=== PATIENT | male | born 1980 ===

== ENCOUNTER 2017-06-22 08:36 | Emergency (ER) | payer OTHER ==
[2017-06-22 09:10] VITALS: BMI 36.0
[2017-06-22] MEDS ORDERED: Sodium Chloride 0.9% 1,000 ML IV STA (09:39)
[2017-06-22] MEDS ORDERED: Sodium Chloride 0.9% 1,000 ML ONE (09:40)
--- NOTE | 2017-06-22 09:52 | C.PDOC ---
History Of Present Illness 37 y/o male, with no known PMHx, presents to ED with c/o blurry vision, lightheadedness, frequent urination, thirst, x over 1 year. Patient states he has had high finger sticks at home, and has never followed up with primary care , and never diagnosed with diabetes. Denies active fever, chest pain, shortness of breath, or dysuria. Time Seen by Provider: 06/22/17 09:22 Chief Complaint (Nursing): High Blood Sugar History Per: Patient History/Exam Limitations: no limitations Onset/Duration Of Symptoms: Days Current Symptoms Are (Timing): Still Present Current Diabetic Medications: None Associated Infectious Symptoms: denies: Cough, Dysuria Recent travel outside of the [place]: No Past Medical History Reviewed: Historical Data, Nursing Documentation, Vital Signs Vital Signs: Last Vital Signs Temp 99.1 F 06/22/17 09:10 Pulse 79 06/22/17 09:10 Resp 18 06/22/17 09:10 BP 122/80 06/22/17 09:10 Pulse Ox 97 06/22/17 11:34 - Medical History PMH: Hypercholesterolemia Family History: States: Unknown Family Hx - Social History Hx Alcohol Use: No Hx Substance Use: No - Immunization History Hx Tetanus Toxoid Vaccination: No Hx Influenza Vaccination: No Hx Pneumococcal Vaccination: No Review Of Systems Except As Marked, All Systems Reviewed And Found Negative. Constitutional: Negative for: Fever, Chills Eyes: Positive for: Other (blurry vision) ENT: Positive for: Other (polydipsia). Negative for: Throat Pain Cardiovascular: Positive for: Light Headedness. Negative for: Chest Pain, Palpitations Respiratory: Negative for: Cough, Shortness of Breath Gastrointestinal: Negative for: Nausea, Vomiting Genitourinary: Positive for: Frequency Skin: Negative for: Rash Physical Exam - Physical Exam Additional Physical Exam Comments: Constitutional: No acute distress. Head: Normocephalic. Atraumatic. Eyes: PERRL. ENT: Moist mucous membranes. Neck: Supple. Cardiovascular: Regular rate. Radial pulse 2+ bilaterally. Chest: No tenderness. Respiratory: Clear to auscultation bilaterally. GI: Soft. Nontender. Nondistended. Back: No CVA tenderness. Musculoskeletal: No tenderness or swelling of extremities. Skin: No rash. Neurologic: Alert, no focal deficit. ED Course And Treatment - Laboratory Results Result Diagrams: 06/22/17 10:02 06/22/17 10:02 O2 Sat by Pulse Oximetry: 97 (RA) Pulse Ox Interpretation: Normal Medical Decision Making Medical Decision Making: Plan: * EKG * CxR * Labs * Testicular Ultrasound * IV fluids * Reassess Progress: EKG IMPRESSION: NSR 70 bpm, No ST/T wave changes CxR IMPRESSION: No active disease. US Testicular: Bilateral epididymal cysts. Patient in no distress, vitals normal, labs unremarkable other than hyperglycemia, no DKA. Will discharge on Metformin, Lisinopril, Simvastatin, f/ u clinic, return to ED for worsening pain, dyspnea, vomiting, confusion, or any other problem. Disposition - Disposition Referrals: [facility] at [facility] [Outside] Disposition: HOME/ ROUTINE Disposition Time: 11:46 Condition: STABLE Prescriptions: Lisinopril [Zestril] 2.5 mg PO DAILY #14 tablet metFORMIN [glucOPHAGE] 500 mg PO BID #28 tab Simvastatin 5 mg PO QPM #14 tablet Instructions: Diabetes Mellitus Type 2 in Adults (ED) Forms: [employer] (Swedish) - Clinical Impression Clinical Impression: Diabetes mellitus - Scribe Statement The provider has reviewed the documentation as recorded by the Scribe SM All medical record entries made by the Scribe were at my direction and personally dictated by me. I have reviewed the chart and agree that the record accurately reflects my personal performance of the history, physical exam, medical decision making, and the department course for this patient. I have also personally directed, reviewed, and agree with the discharge instructions and disposition.
[2017-06-22 09:53] LABS: RBC URINE < 1 /hpf (0-3); URINE BILIRUBIN NEGATIVE (NEGATIVE); URINE BLOOD NEGATIVE (NEGATIVE); URINE COLOR Yellow (YELLOW); URINE GLUCOSE (UA) 3+ mg/dL (Normal); URINE KETONE NEGATIVE (NEGATIVE); URINE LEUKOCYTE ESTERASE NEG Leu/uL (Negative); URINE PROTEIN 1+ mg/dL (NEGATIVE); URINE UROBILINOGEN NORMAL mg/dL (0.2-1.0); WBC URINE 1 /hpf (0-5)
--- NOTE | 2017-06-22 09:53 | C.PDOC ---
Time Seen by Provider: 06/22/17 09:22 Chief Complaint (Nursing): High Blood Sugar Past Medical History Vital Signs: Last Vital Signs Temp 99.1 F 06/22/17 09:10 Pulse 79 06/22/17 09:10 Resp 18 06/22/17 09:10 BP 122/80 06/22/17 09:10 Pulse Ox 97 06/22/17 09:10 - Medical History PMH: Hypercholesterolemia - Social History Hx Alcohol Use: No Hx Substance Use: No - Immunization History Hx Tetanus Toxoid Vaccination: No Hx Influenza Vaccination: No Hx Pneumococcal Vaccination: No ED Course And Treatment O2 Sat by Pulse Oximetry: 97 Disposition - Disposition Forms: [employer] (Vietnamese)
--- NOTE | 2017-06-22 10:00 | RAD ---
HISTORY: hyperglycemia COMPARISON: Abort TECHNIQUE: Chest PA and lateral FINDINGS: LUNGS: No active pulmonary disease. PLEURA: No significant pleural effusion identified. No pneumothorax apparent. CARDIOVASCULAR: Normal. OSSEOUS STRUCTURES: No significant abnormalities. VISUALIZED UPPER ABDOMEN: Normal. OTHER FINDINGS: None. IMPRESSION: No active disease.
[2017-06-22 10:13] LABS: BASO # 0.1 K/uL (0.0-0.2); BASO % 0.7 % (0.0-2.0); EOS # 0.3 K/uL (0.0-0.7); EOS % 4.5 % (0.0-4.0); HEMATOCRIT 46.7 % (35.0-51.0); LYMPH # 2.6 K/uL (1.0-4.3); LYMPH % 34.8 % (20.0-40.0); MEAN CELL VOLUME 85.9 fL (80.0-94.0); MEAN CORPUSCULAR HEMOGLOBIN 29.3 pg (27.0-31.0); MEAN CORPUSCULAR HGB CONC 34.1 g/dL (33.0-37.0); MEAN PLATELET VOLUME 9.9 fL (7.2-11.7); MONO # 0.5 K/uL (0.0-0.8); MONO % 6.5 % (0.0-10.0); NRBC % 0.1 % (0.0-2.0); RED CELL DISTRIBUTION WIDTH 12.5 % (11.5-14.5); WHITE BLOOD COUNT 7.4 K/uL (4.8-10.8)
[2017-06-22 10:28] LABS: CHLORIDE 99 mmol/L (98-107); SODIUM 140 mmol/L (132-148)
[2017-06-22 10:29] LABS: POTASSIUM 3.8 mmol/L (3.6-5.2)
[2017-06-22 10:30] LABS: GFR AFRICAN-AMERICAN > 60
[2017-06-22 10:31] LABS: ALB/GLOB RATIO 1.1 (1.0-2.1); ALKALINE PHOSPHATASE 84 U/L (38-126); ALT/SGPT 70 U/L (21-72); AST/SGOT 39 U/L (17-59); BILIRUBIN,TOTAL 1.1 mg/dL (0.2-1.3); BLOOD UREA NITROGEN 14 mg/dL (9-20); CARBON DIOXIDE 27 mmol/L (22-30); GLUCOSE,RANDOM 252 mg/dL (75-110); TOTAL PROTEIN 7.6 g/dL (6.3-8.3)
[2017-06-22 10:32] LABS: CALCIUM 9.3 mg/dl (8.6-10.4)
--- NOTE | 2017-06-22 11:47 | US ---
HISTORY: testicular pain TECHNIQUE: Realtime sonography through the scrotum with color and doppler flow. COMPARISON: None Available. FINDINGS: RIGHT TESTICLE: Measures 4.3 x 2.1 x 3.0 cm. Homogeneous echotexture. Blood flow is demonstrated. RIGHT EPIDIDYMIS: Measures approximately 1.3 x 1.1 x 1.9 cm. Epididymal cyst measures approximately 0.8 x 0.7 x 1.0 cm. LEFT TESTICLE: Measures 4.2 x 2.7 x 3.1 cm. Homogeneous echotexture. Blood flow is demonstrated the. LEFT EPIDIDYMIS: Measures approximately 1.7 x 0.8 x 1.9 cm. Epididymal cysts measure approximately 0.7 x 0.4 x 0.7 cm and 0.3 x 0.2 x 0.2 cm. HYDROCELE: None. VARICOCELE: None. OTHER FINDINGS: None. IMPRESSION: Bilateral epididymal cysts.
[2017-06-22 12:59] VITALS: BP 132/87; PULSE 72; RESP 20; TEMP 98.8; O2SAT 98
--- NOTE | 2017-06-23 12:32 | CARD ---
APPROVED REPORT EKG Measurement Heart [id number] <Conclusion> Normal sinus rhythm Normal ECG
== END 2017-06-22 13:01 | disposition home or self-care (01) ==
LOC: C.ER 08:36
DX: E11.65 Type 2 diabetes mellitus with hyperglycemia (principal)
CPT/HCPCS: 71020; 76870; 80053; 81001; 82009; 82550; 82553; 82948; 83690; 84484; 85025; 87086; 93005; 96360; 99285; J7040

== ENCOUNTER 2017-07-03 13:45 | Emergency (ER) | payer OTHER, SELFPAY ==
[2017-07-03 13:45] VITALS: BMI 36.0
[2017-07-03 13:51] VITALS: O2SAT 97
[2017-07-03] MEDS ORDERED: Tetracaine 0.5% Ophth 2 ML BOTTLE OU ONE (14:26)
[2017-07-03] MEDS ORDERED: Tetracaine 0.5% Ophth (OR ONLY) ONE (14:28)
--- NOTE | 2017-07-03 14:31 | C.PDOC ---
History Of Present Illness 37 yo male w/PMHx of NIDDM, come in for evaluation of B/L eyes pain for past 6 months associated with intermittent dizziness. Pt sts, was seen by linen room worker few days ago " who measured my pressure and was told I have glaucoma and recommend I go to ED for evaluation immediately". Pt sts, wears glasses " needs to be changed as per my linen room worker. I am in process of changing my glasses now ". Pt admits, complaint with DM medication. Otherwise, pt denies fever, chills, severe headache, blurry vision, double vision. floaters, blindness, denies severe eye pain, dizziness, N/V, neck pain, CP, SOB, abd. pain, denies any other active complaints. Ambulate to ED for evaluation, not in any apparent distress. Time Seen by Provider: 07/03/17 13:55 Chief Complaint (Nursing): Eye Problem History Per: Patient History/Exam Limitations: no limitations Onset/Duration Of Symptoms: Days (6 months) Current Symptoms Are (Timing): Still Present Past Medical History Reviewed: Historical Data, Nursing Documentation, Vital Signs Vital Signs: Last Vital Signs Temp 98.2 F 07/03/17 14:43 Pulse 75 07/03/17 14:43 Resp 16 07/03/17 14:43 BP 114/74 07/03/17 14:43 Pulse Ox 97 07/03/17 14:49 - Medical History PMH: Hypercholesterolemia Family History: States: No Known Family Hx - Social History Hx Alcohol Use: No Hx Substance Use: No - Immunization History Hx Tetanus Toxoid Vaccination: No Hx Influenza Vaccination: No Hx Pneumococcal Vaccination: No Review Of Systems Except As Marked, All Systems Reviewed And Found Negative. Constitutional: Negative for: Fever, Chills Eyes: Positive for: Pain (Bilateral eye pain). Negative for: Vision Change Cardiovascular: Negative for: Chest Pain Respiratory: Negative for: Shortness of Breath Gastrointestinal: Negative for: Nausea, Vomiting, Abdominal Pain Musculoskeletal: Negative for: Neck Pain Neurological: Positive for: Dizziness (Intermittent dizziness. None right now.) . Negative for: Headache Physical Exam - Physical Exam Appears: Well, Non-toxic, No Acute Distress Skin: Normal Color, Warm, Dry, No Rash Head: Normacephalic Eye(s): bilateral: PERRL, EOMI (no pain or limitation on extraocular movement B/ L.), Other (no conjunctival injection or discharge. No periorbital edema or erythema.) Ear(s): Bilateral: Normal Nose: No Flaring, No Discharge Oral Mucosa: Moist, No Drooling Tongue: Normal Appearing Lips: Normal Appearing Throat: No Erythema, No Exudate, No Drooling Neck: Supple Cardiovascular: Rhythm Regular, No Friction Rub, No Murmur, No JVD, Other ((-) carotid bruits) Respiratory: No Decreased Breath Sounds, No Accessory Muscle Use, No Rales, No Rhonchi, No Stridor, No Wheezing Gastrointestinal/Abdominal: Soft, No Tenderness, No Guarding Extremity: No Pedal Edema, No Deformity Neurological/Psych: Oriented x3, Normal Speech, Normal Motor, Normal Sensation, Normal Reflexes ED Course And Treatment O2 Sat by Pulse Oximetry: 97 (RA ) Pulse Ox Interpretation: Normal Progress Note: TONOPEN EYE PRESSURE MEASUREMENT: R EYE-21, L EYE-19. FSBS 115. On re-eval, pt is afebrile, hemodynamiclay stable. Non-toxic. B/L eyes; no pain or limitation on extraocula movemnet. case discussed with ED attending and no further testing ecommend. Dischagre with outpt f/u recommend at this time. Disposition Counseled Patient/Family Regarding: Studies Performed, Diagnosis, Need For Followup - Disposition Referrals: Osiel Crow MD [Staff Provider] - Disposition: HOME/ ROUTINE Disposition Time: 14:34 Condition: STABLE Additional Instructions: Follow up with Ophtalmology in 1-2 days for re-evaluation and further treatment as need Return to ED if any worsening or new changes. Instructions: Eye Pain (ED) Forms: [employer] (Equatorial Guinean) Print Language: KOREAN - Clinical Impression Clinical Impression: Eye pain - PA / TOE STRIPPER / Resident Statement MD/DO has reviewed & agrees with the documentation as recorded. - Scribe Statement The provider has reviewed the documentation as recorded by the Scribe Debbie Schmitt All medical record entries made by the Scribe were at my direction and personally dictated by me. I have reviewed the chart and agree that the record accurately reflects my personal performance of the history, physical exam, medical decision making, and the department course for this patient. I have also personally directed, reviewed, and agree with the discharge instructions and disposition.
[2017-07-03 14:44] VITALS: BP 114/74; PULSE 75; RESP 16; TEMP 98.2
== END 2017-07-03 14:49 | disposition home or self-care (01) ==
LOC: C.ER 13:45
DX: H57.13 Ocular pain, bilateral (principal)

== ENCOUNTER 2017-08-28 16:47 | Emergency (ER) | payer OTHER ==
[2017-08-28 16:47] VITALS: BMI 36.0
--- NOTE | 2017-08-28 21:10 | C.PDOC ---
History Of Present Illness 37 yr old male with PMHx of diabetes and elevated uric acid, is on Metformin, presents to the ER with complaints of pain all over with mild nausea. Patient states he took Advil 400 with mild relief. Reports of decrease appetite, states he checked his sugar and it had gone down to 80, reports of palpitations. States his eyes feels heavy, feels hot, and has ringing in ears. Patient denies chest pain, SOB, vomiting, abdominal pain, weakness or numbness. Time Seen by Provider: 08/28/17 19:45 Chief Complaint (Nursing): Headache History Per: Patient History/Exam Limitations: no limitations Onset/Duration Of Symptoms: Days Current Symptoms Are (Timing): Still Present Past Medical History Reviewed: Historical Data, Nursing Documentation, Vital Signs Vital Signs: Last Vital Signs Temp 102.0 F H 08/28/17 20:02 Pulse 127 H 08/28/17 17:05 Resp 20 08/28/17 17:05 BP 127/85 08/28/17 17:05 Pulse Ox 99 08/28/17 21:16 - Medical History PMH: Hypercholesterolemia Family History: States: No Known Family Hx - Social History Hx Alcohol Use: No Hx Substance Use: No - Immunization History Hx Tetanus Toxoid Vaccination: No Hx Influenza Vaccination: No Hx Pneumococcal Vaccination: No Review Of Systems Except As Marked, All Systems Reviewed And Found Negative. Constitutional: Positive for: Other ((+) pain all over) Eyes: Positive for: Other ((+) eyes feel heavy) ENT: Positive for: Other ((+) Ringing in ears) Gastrointestinal: Positive for: Nausea. Negative for: Vomiting Physical Exam - Physical Exam Appears: Non-toxic, No Acute Distress Skin: Warm, Dry, No Rash Head: Atraumatic, Normacephalic Oral Mucosa: Moist Throat: Erythema (Mild ) Neck: Normal, Normal ROM, Supple Chest: Symmetrical, No Tenderness Cardiovascular: Rhythm Regular, No Murmur Respiratory: Normal Breath Sounds, No Rales, No Rhonchi, No Stridor, No Wheezing Gastrointestinal/Abdominal: Normal Exam, Soft, No Tenderness, No Guarding, No Rebound Extremity: Normal ROM, No Swelling Neurological/Psych: Oriented x3, Normal Speech, Normal Motor ED Course And Treatment O2 Sat by Pulse Oximetry: 99 (RA ) Pulse Ox Interpretation: Normal Medical Decision Making Medical Decision Making: PLAN: * CBC * CMP * Influenza * Motrin PO * Tylenol PO * Pepcid IVP * Zofran IVP * Sodium Chloride IV * * Patient feeling better, requesting to go home. Disposition Counseled Patient/Family Regarding: Diagnosis, Need For Followup, Rx Given - Disposition Disposition: HOME/ ROUTINE Disposition Time: 21:29 Condition: STABLE Prescriptions: Ibuprofen [Motrin] 600 mg PO TID #15 tab Instructions: Fever in Adults (ED), Diabetic Hypoglycemia (ED) Forms: Gen Discharge Inst Belizean, [employer] (Belizean) - Clinical Impression Clinical Impression: Influenza-like illness - Scribe Statement The provider has reviewed the documentation as recorded by the Andreasibalondra Schmitt Provider Attestation: All medical record entries made by the Andreasibalondra were at my direction and personally dictated by me. I have reviewed the chart and agree that the record accurately reflects my personal performance of the history, physical exam, medical decision making, and the department course for this patient. I have also personally directed, reviewed, and agree with the discharge instructions and disposition.
[2017-08-28] MEDS ORDERED: Sodium Chloride 0.9% 1,000 ML IV ONE (21:13)
[2017-08-28 21:52] VITALS: BP 109/69; PULSE 96; RESP 20; TEMP 98.3; O2SAT 96
== END 2017-08-28 21:52 | disposition home or self-care (01) ==
LOC: C.ER 16:47
DX: J11.1 Influenza due to unidentified influenza virus with other respiratory manifestations (principal)

== ENCOUNTER 2017-08-29 16:36 | Emergency (ER) | payer OTHER ==
[2017-08-29 16:41] VITALS: BMI 37.5
[2017-08-29 16:42] VITALS: RESP 18; TEMP 98.1; O2SAT 98
[2017-08-29] MEDS ORDERED: Simethicone 80 mg Chewtab PO STA (17:05)
[2017-08-29] MEDS ORDERED: Sodium Chloride 0.9% 1,000 ML IV STA (17:05)
--- NOTE | 2017-08-29 17:09 | C.PDOC ---
History Of Present Illness 37 year old male presents to the ED with complaints of abdominal pain for two days with associated sensation of being "gassy" and sweats. Patient reports he was seen in the ED yesterday for nausea, fever, and abdominal pain. Fever and nausea have resolved but abdominal pain has worsened. He denies vomiting, diarrhea, chest pain, shortness of breath, or current fever. Time Seen by Provider: 08/29/17 16:54 Chief Complaint (Nursing): Abdominal Pain History Per: Patient History/Exam Limitations: no limitations Onset/Duration Of Symptoms: Days (2 days ), Worse Since (last night ) Current Symptoms Are (Timing): Still Present Location Of Pain/Discomfort: Diffuse Radiation Of Pain To:: None Quality Of Discomfort: "Pain" Associated Symptoms: denies: Fever, Chills, Nausea, Vomiting, Diarrhea Exacerbating Factors: None Alleviating Factors: None Recent travel outside of the [place]: No Additional History Per: Prior Records Past Medical History Reviewed: Historical Data, Nursing Documentation, Vital Signs Vital Signs: Last Vital Signs Temp 98.1 F 08/29/17 16:41 Pulse 104 H 08/29/17 16:41 Resp 18 08/29/17 16:41 BP 113/79 08/29/17 16:41 Pulse Ox 98 08/29/17 17:21 - Medical History PMH: Hypercholesterolemia Family History: States: Unknown Family Hx - Social History Hx Alcohol Use: No Hx Substance Use: No - Immunization History Hx Tetanus Toxoid Vaccination: No Hx Influenza Vaccination: No Hx Pneumococcal Vaccination: No Review Of Systems Constitutional: Positive for: Sweats. Negative for: Fever, Chills Cardiovascular: Negative for: Chest Pain Respiratory: Negative for: Cough, Shortness of Breath Gastrointestinal: Positive for: Abdominal Pain. Negative for: Nausea, Vomiting , Diarrhea Physical Exam - Physical Exam Additional Physical Exam Comments: Constitutional: No acute distress. Head: Normocephalic. Atraumatic. Eyes: PERRL. ENT: Moist mucous membranes. Neck: Supple. Cardiovascular: Regular rate. Radial pulse 2+ bilaterally. Chest: No tenderness. Respiratory: Clear to auscultation bilaterally. GI: Soft. Nontender. Nondistended. Back: No CVA tenderness. Musculoskeletal: No tenderness or swelling of extremities. Skin: No rash. Clammy. Neurologic: Alert, no focal deficit. ED Course And Treatment - Laboratory Results Result Diagrams: 10/31/17 17:26 08/29/17 17:26 O2 Sat by Pulse Oximetry: 98 (RA) Progress Note: Blood work, UA, and Influenza A B stat were ordered. Patient was given Toradol, Zofran, Mylicon, and IV fluids. Medical Decision Making Medical Decision Making: Chart from yesterday indicates labs were done but no results in system and patient states no lab work was done. Will perform today, treat patient with IVF , Zofran, Simethicone, and toradol. No abdominal tenderness on exam, soft, will re-evaluate patient, no indication for imaging at this time. Patient feels much better and appears better at reassessment after treatment. Will discharge home, supportive care, f/u primary care, instructed to return to ED for worsening pain, fever, intractible vomiting, changing abdominal pain, or any other problem. Disposition - Disposition Referrals: [facility] at [facility] [Outside] Disposition: HOME/ ROUTINE Disposition Time: 18:07 Condition: STABLE Prescriptions: Famotidine/Ca Carb/Mag Hydrox [Pepcid Complete Tablet Chew] 1 each PO BID #28 tab.chew Ibuprofen [Motrin] 600 mg PO Q6 #25 tab Ondansetron ODT [Zofran ODT] 4 mg PO Q8 #12 odt Simethicone [Mi-Acid] 80 mg PO BID #12 ctb Instructions: Gastroenteritis (ED) Forms: [employer] (Irish), Work Excuse - Clinical Impression Clinical Impression: Abdominal pain, Vomiting - Scribe Statement The provider has reviewed the documentation as recorded by the Scribalondra Forbes All medical record entries made by the Scribe were at my direction and personally dictated by me. I have reviewed the chart and agree that the record accurately reflects my personal performance of the history, physical exam, medical decision making, and the department course for this patient. I have also personally directed, reviewed, and agree with the discharge instructions and disposition.
[2017-08-29 17:30] LABS: BASO # 0.1 K/uL (0.0-0.2); BASO % 0.6 % (0.0-2.0); EOS % 0.2 % (0.0-4.0); HEMATOCRIT 43.3 % (35.0-51.0); LYMPH # 1.7 K/uL (1.0-4.3); MEAN CELL VOLUME 85.9 fL (80.0-94.0); MEAN CORPUSCULAR HEMOGLOBIN 30.2 pg (27.0-31.0); MEAN CORPUSCULAR HGB CONC 35.2 g/dL (33.0-37.0); MONO # 0.7 K/uL (0.0-0.8); MONO % 5.8 % (0.0-10.0); RED CELL DISTRIBUTION WIDTH 13.1 % (11.5-14.5)
[2017-08-29 17:33] LABS: WHITE BLOOD COUNT 11.4 K/uL (4.8-10.8)
[2017-08-29 17:47] LABS: RBC URINE 1 /hpf (0-3); URINE BILIRUBIN NEGATIVE (NEGATIVE); URINE BLOOD 1+ (NEGATIVE); URINE COLOR Yellow (YELLOW); URINE GLUCOSE (UA) NORMAL (Normal); URINE KETONE NEGATIVE (NEGATIVE); URINE LEUKOCYTE ESTERASE NEG Leu/uL (Negative); URINE PROTEIN NEGATIVE (NEGATIVE); WBC URINE < 1 /hpf (0-5)
[2017-08-29 17:48] LABS: CHLORIDE 102 mmol/L (98-107); POTASSIUM 3.3 mmol/L (3.6-5.2); SODIUM 134 mmol/L (132-148)
[2017-08-29 17:50] LABS: GFR AFRICAN-AMERICAN > 60
[2017-08-29 17:51] LABS: ALB/GLOB RATIO 1.3 (1.0-2.1); ALKALINE PHOSPHATASE 84 U/L (38-126); ALT/SGPT 41 U/L (21-72); AST/SGOT 27 U/L (17-59); BILIRUBIN,TOTAL 1.5 mg/dL (0.2-1.3); BLOOD UREA NITROGEN 9 mg/dL (9-20); CALCIUM 8.6 mg/dl (8.6-10.4); CARBON DIOXIDE 17 mmol/L (22-30); GLUCOSE,RANDOM 122 mg/dL (75-110); TOTAL PROTEIN 7.7 g/dL (6.3-8.3)
[2017-08-29 18:30] VITALS: BP 100/65; PULSE 77
== END 2017-08-29 18:30 | disposition home or self-care (01) ==
LOC: C.ER 16:36
DX: R11.2 Nausea with vomiting, unspecified (principal); R10.9 Unspecified abdominal pain; E78.00 Pure hypercholesterolemia, unspecified
CPT/HCPCS: 80053; 81001; 83690; 85025; 87086; 87804; 96361; 96374; 96375; 99284; J1885; J2405; J7040

== ENCOUNTER 2018-07-29 12:13 | Emergency (ER) | payer OTHER, SELFPAY ==
[2018-07-29 12:14] VITALS: BMI 33.8
[2018-07-29 12:21] VITALS: TEMP 98.4
--- NOTE | 2018-07-29 12:39 | C.PDOC ---
History Of Present Illness 38-year-old male, presents to the emergency department with complaints of left thigh and hip pain gradually developed over the past week after sustaining injury at work. Pt reports a heavy box fell on his left thigh. Pain is localized and worse with ambulation. Otherwise, he denies obvious deformity, numbness/weakness. Time Seen by Provider: 07/29/18 12:25 Chief Complaint (Nursing): Lower Extremity Problem/Injury Past Medical History Vital Signs: Last Vital Signs Temp 98.4 F 07/29/18 12:16 Pulse 82 07/29/18 12:16 Resp 17 07/29/18 12:16 BP 146/78 07/29/18 12:16 Pulse Ox 100 07/29/18 12:16 - Medical History PMH: Hypercholesterolemia Family History: States: Unknown Family Hx - Social History Hx Alcohol Use: No Hx Substance Use: No - Immunization History Hx Tetanus Toxoid Vaccination: Yes Hx Influenza Vaccination: No Hx Pneumococcal Vaccination: No ED Course And Treatment O2 Sat by Pulse Oximetry: 100 Pulse Ox Interpretation: Normal (RA) Disposition Counseled Patient/Family Regarding: Studies Performed, Diagnosis, Need For Followup, Rx Given - Disposition Referrals: [facility] [Outside] Disposition: HOME/ ROUTINE Disposition Time: 13:08 Condition: STABLE Additional Instructions: RICE-rest, ice, compression, elevation Avoid prolong walking Take pain medication as prescribed Follow up with PMD in 2-3 days for re-evaluation return to ED if any worsening or new changes, Instructions: Contusion (DC) Forms: [employer] (Kinyarwanda) - Clinical Impression Clinical Impression: Contusion - Scribe Statement The provider has reviewed the documentation as recorded by the Scribe (Donell Jean) All medical record entries made by the Scribe were at my direction and personally dictated by me. I have reviewed the chart and agree that the record accurately reflects my personal performance of the history, physical exam, medical decision making, and the department course for this patient. I have also personally directed, reviewed, and agree with the discharge instructions and disposition.
--- NOTE | 2018-07-29 12:57 | RAD ---
Date of service: 07/29/2018 PROCEDURE: Left Knee Radiographs. HISTORY: Pain. COMPARISON: None. FINDINGS: BONES: Normal. No fracture. JOINTS: Normal. No osteoarthritis. JOINT EFFUSION: Small suprapatellar joint effusion OTHER FINDINGS: None. IMPRESSION: No evidence of acute displaced fracture nor dislocation. Small suprapatellar joint effusion.
--- NOTE | 2018-07-29 12:58 | RAD ---
Date of service: 07/29/2018 PROCEDURE: Left femur HISTORY: Injury COMPARISON: Comparison made with concurrent radiographs of the pelvis left hip TECHNIQUE: AP and lateral views of the left femur performed FINDINGS: . No evidence of acute displaced fracture nor dislocation. The osseous structures intact. Left femoral head is appropriately located within the left acetabulum. IMPRESSION: No acute fracture seen.
--- NOTE | 2018-07-29 13:03 | RAD ---
PROCEDURE: Pelvis left hip HISTORY: injury COMPARISON: Correlation made with concurrent radiographs left femur. FINDINGS: BONES: Normal. No fracture. JOINTS: Normal. SOFT TISSUES: Normal. OTHER FINDINGS: None. IMPRESSION: No evidence of acute displaced fracture nor dislocation. If symptoms persist or occult fracture suspected clinically consider follow-up CT scan.
--- NOTE | 2018-07-29 13:17 | C.PDOC ---
History Of Present Illness 38-year-old male presents to the emergency department with complaints of left thigh, hip and knee pain gradually developed over the past week after sustaining injury at work. Pt reports a heavy box fell on his left thigh. Pain is localized over Left thigh and worse with ambulation. Otherwise, he denies obvious deformity, numbness/weakness to injured leg. Ambulate to ED for evaluation, not in any apparent distress. Time Seen by Provider: 07/29/18 12:25 Chief Complaint (Nursing): Lower Extremity Problem/Injury History Per: Patient History/Exam Limitations: no limitations Past Medical History Reviewed: Historical Data, Nursing Documentation, Vital Signs Vital Signs: Last Vital Signs Temp 98.4 F 07/29/18 12:16 Pulse 82 07/29/18 12:16 Resp 17 07/29/18 12:16 BP 146/78 07/29/18 12:16 Pulse Ox 100 07/29/18 13:12 - Medical History PMH: Hypercholesterolemia Family History: States: No Known Family Hx - Social History Hx Alcohol Use: No Hx Substance Use: No - Immunization History Hx Tetanus Toxoid Vaccination: Yes Hx Influenza Vaccination: No Hx Pneumococcal Vaccination: No Review Of Systems Constitutional: Negative for: Fever Respiratory: Negative for: Shortness of Breath Gastrointestinal: Negative for: Nausea, Vomiting Musculoskeletal: Positive for: Leg Pain. Negative for: Back Pain Neurological: Negative for: Headache Physical Exam - Physical Exam Appears: Non-toxic, No Acute Distress Skin: Warm, Dry, No Rash Eye(s): bilateral: PERRL Neck: Trachea Midline, No Midline Cervical Tenderness, No Paracervical Tenderness, No Step Off Deformity, Supple Chest: Symmetrical, No Deformity, No Tenderness Back: No Vertebral Tenderness Extremity: Normal ROM (FAROM of LLE), Tenderness, No Deformity, No Swelling, Other (Tenderness lateral femur extend down to lateral aspect of left knee, (+) trace ecchymosis lateral left knee) Pulses: Left Dorsalis Pedis: Normal, Right Dorsalis Pedis: Normal Neurological/Psych: Oriented x3, Normal Speech, Normal Motor, Normal Sensation, Normal Reflexes ED Course And Treatment O2 Sat by Pulse Oximetry: 100 Pulse Ox Interpretation: Normal (RA) - Other Rad Left hip X-Ray: Interpreted by Me, Viewed By Me Interpretation: (-) acute fx or dislocation Left knee and thigh X-Ray: Interpreted by Me, Viewed By Me Interpretation: (-) acute fx or dislocation Progress Note: On re-eval, pt is afebrile, hemodynamicaly stable. non-toxic. PulseOx 98% RA. LLE: Contusion to left lateral thigh with trace ecchymoseslateral aspect left knee. FAROM, no neurovascular deficits. neuorlogicaly intact. Imaging review (-) acute fx or dislocation. Pt has clinical findings c/w letf leg contusion. Pt advised and ref. to f/u with PMD, Ortho in 2-3 days for re-eval. return to ED if any worsening or new chanegs. Disposition - Disposition Referrals: [facility] [Outside] Disposition: HOME/ ROUTINE Disposition Time: 13:10 Condition: STABLE Additional Instructions: RICE-rest, ice, compression, elevation Avoid prolong walking Take pain medication as prescribed Follow up with PMD in 2-3 days for re-evaluation return to ED if any worsening or new changes, Prescriptions: traMADol [Ultram] 50 mg PO TID #7 tab Instructions: Contusion (DC) Forms: [email or web address] (Serbian) - Clinical Impression Clinical Impression: Contusion - Scribe Statement The provider has reviewed the documentation as recorded by the Scribe (Donell Salazar) All medical record entries made by the Scribe were at my direction and personally dictated by me. I have reviewed the chart and agree that the record accurately reflects my personal performance of the history, physical exam, medical decision making, and the department course for this patient. I have also personally directed, reviewed, and agree with the discharge instructions and disposition.
[2018-07-29 13:22] VITALS: BP 136/85; PULSE 71; RESP 16
[2018-07-29 17:19] VITALS: O2SAT 100
== END 2018-07-29 13:21 | disposition home or self-care (01) ==
LOC: C.ER 12:13
DX: S70.12XA Contusion of left thigh, initial encounter (principal); S80.12XA Contusion of left lower leg, initial encounter; W20.8XXA Other cause of strike by thrown, projected or falling object, initial encounter; Y99.0 Civilian activity done for income or pay; E78.00 Pure hypercholesterolemia, unspecified